=== PATIENT | male | born 1935 | race Caucasian/White ===

== ENCOUNTER → 2016-11-27 | Outpatient (CLI) | payer MEDICARE, OTHER ==
[~2016-11-27] MED LIST: ALDACTONE25 MG PO; ANUSOL HC SUPP1 SUPP PR; ANUSOL SUPP EAC12 EA PR; BUMEX 1MG TABLET1 MG PO; CITRATE OF MAG296 ML PO; COREG6.25 MG PO; ELIQUIS2.5 MG PO; FEOSOL325 MG PO; FERROUS SULFAT325 MG PO; IMDUR ER TAB 3030 MG PO; LASIX 40 MG TAB40 MG PO; LEVEMIR100 UNIT/1 SC; LEVEMIR100 UNIT/1 SQ; LIPITOR TAB 2020 MG PO; MAGNESIUM CITR PO; MEDROL DOSEPAK 24 MG PO; METOPROLOL TART25 MG PO; NASALIDE INH SO25 ML; NITROSTAT 0.40.4 MG SL; NOVOLOG 10100 UNITS/ SC; NOVOLOG 10100 UNITS1 SQ; OMEPRAZOLE20 M1 PO; PRILOSEC20 MG PO; SINGULAIR10 MG PO; SYMBICORT 16010.2 GM INH; TYLENOL 500 MG500 MG PO; VALIUM5 MG PO; VENTOLIN HFA 66.7 GM INH; VITAMIN D 11000 UNIT PO; ZYLOPRIM300 MG PO; ZYRTEC10 MG PO
[2016-11-27 10:51] LABS: HEMOGLOBIN 10.6 gm/dl (14.0-17.5); RED BLOOD COUNT 3.19 M/UL (4.20-5.50); WHITE BLOOD COUNT 4.9 K/UL (4.5-11.0)
== END ==
LOC: LAB 09:36
PROVIDERS: Internal Medicine Nephrology
DX: N18.4 Chronic kidney disease, stage 4 (severe) (principal); N25.81 Secondary hyperparathyroidism of renal origin
CPT/HCPCS: 36415; 80053; 82728; 83540; 83550; 83970; 84100; 85027

== ENCOUNTER → 2017-01-02 | Outpatient (CLI) | payer MEDICARE, OTHER | LOC: HEART 5 11:31 | DX: R06.02 Shortness of breath (principal); F17.210 Nicotine dependence, cigarettes, uncomplicated; R94.2 Abnormal results of pulmonary function studies | CPT/HCPCS: 94060; 94729 ==

== ENCOUNTER 2020-10-19 15:38 | Emergency (ER) | payer MEDICARE, OTHER ==
[~2020-10-19 15:38] MED LIST changes: +CEFUROXIME500 MG PO; +COLACE100 MG PO; +COLCHICINE 0.60.6 MG PO; +COREG 3.125M3.125 MG PO; +DOXYCYCLINE MO100 MG PO; +ELIQUIS 2.5 MG2.5 MG PO; +FISH OIL 1,0001 EACH PO; +FLONASE 0.05% N16 GM; +FLORINEF 0.1 M0.1 MG PO; -LEVEMIR100 UNIT/1 SQ; +LOPRESSOR 25 MG25 MG PO; +MIDODRINE HCL10 MG PO; +MIRALAX17 GM PO; +NEURONTIN 100100 MG PO; +NORCO 5-325 TA1 EACH PO; +NOVOLOG MI100 UNIT/1 SC; +OMNICEF 300 MG300 MG PO; +PROAIR HFA8.5 GM INH; +RANOLAZINE ER500 MG PO; -VITAMIN D 11000 UNIT PO; +VITAMIN D250000 UNIT PO; +ZAROXOLYN/DIULO5 MG PO
[2020-10-19 16:49] LABS: HEMOGLOBIN 9.8 gm/dl (14.0-17.5); RED BLOOD COUNT 2.7 M/UL (4.20-5.50); WHITE BLOOD COUNT 6.1 K/UL (4.5-11.0)
== END 2020-10-19 18:10 | disposition home or self-care (01) ==
LOC: ER1 15:38
PROVIDERS: Physician Assistant
DX: R53.83 Other fatigue (principal); R60.0 Localized edema; R79.9 Abnormal finding of blood chemistry, unspecified; E78.5 Hyperlipidemia, unspecified; E11.9 Type 2 diabetes mellitus without complications; I11.0 Hypertensive heart disease with heart failure; I50.9 Heart failure, unspecified; Z79.899 Other long term (current) drug therapy
CPT/HCPCS: 71045; 80053; 81001; 82550; 82553; 83874; 83880; 84484; 85025; 93005; 99284

== ENCOUNTER → 2020-11-17 | Outpatient (CLI) | payer MEDICARE, OTHER ==
[~2020-11-17] MED LIST changes: +NITROGLYCERIN0.4 MG SL; +SILVADENE CREAM20 GM TOP; +SODIUM CHLORIDE1 G1 PO; +ZOFRAN ODT 4 MG4 MG SL; +ZYVOX600 MG PO
== END ==
LOC: HEART 5 09:00
DX: I50.22 Chronic systolic (congestive) heart failure (principal); I08.3 Combined rheumatic disorders of mitral, aortic and tricuspid valves; I27.20 Pulmonary hypertension, unspecified; R93.1 Abnormal findings on diagnostic imaging of heart and coronary circulation; Z95.5 Presence of coronary angioplasty implant and graft
CPT/HCPCS: 93306

== ENCOUNTER 2021-01-15 11:48 | Inpatient (IN) | payer MEDICARE, OTHER ==
[~2021-01-15] VITALS: Ht 182.9 cm; Wt 86.0 kg
[~2021-01-15 11:48] MED LIST changes: -NITROGLYCERIN0.4 MG SL; -SILVADENE CREAM20 GM TOP; -SODIUM CHLORIDE1 G1 PO; -ZOFRAN ODT 4 MG4 MG SL; -ZYVOX600 MG PO
[2021-01-15 13:50] LABS: HEMOGLOBIN 9.9 gm/dl (14.0-17.5); RED BLOOD COUNT 2.79 M/UL (4.20-5.50); WHITE BLOOD COUNT 8.8 K/UL (4.5-11.0)
[2021-01-15 14:21] LABS: BUN/CREATININE RATIO 22 (0-10)
[2021-01-15] MEDS ORDERED: SILVADENE CREAM20 GM TOP (19:49)
[2021-01-15] MEDS ORDERED: NITROGLYCERIN0.4 MG SL (19:50)
[2021-01-16 02:29] LABS: ACINETOBACTER BAUMANNII Not Detected (Negative); CANDIDA ALBICANS Not Detected (Negative); CANDIDA KRUSEI Not Detected (Negative); CANDIDA TROPICALIS Not Detected (Negative); ESCHERICHIA COLI Not Detected (Negative); HAEMOPHILUS INFLUENZAE Not Detected (Negative); KLEBSIELLA OXYTOCA Not Detected (Negative); KLEBSIELLA PNEUMONIAE Not Detected (Negative); KPC-CARBAPENEM-RESISTANCE GENE Not Detected (Negative); PROTEUS Not Detected (Negative); PSEUDOMONAS AERUGINOSA Not Detected (Negative); SERRATIA MARCESANS Not Detected (Negative); STAPHYLOCOCCUS Not Detected (Negative); STAPHYLOCOCCUS AUREUS Not Detected (Negative); STREP AGALACTIAE (GROUP B) Not Detected (Negative); STREP PYOGENES (GROUP A) Not Detected (Negative); STREPTOCOCCUS Not Detected (Negative); mecA (METHICILLIN RESIST GENE Not Detected (Negative); vanA/B (VANCOMYCIN RESIST GENE Not Detected (Negative)
[2021-01-16 03:44] LABS: ENTEROCOCCUS DETECTED (Negative)
[2021-01-16 04:55] LABS: HEMOGLOBIN 9.2 gm/dl (14.0-17.5); RED BLOOD COUNT 2.6 M/UL (4.20-5.50); WHITE BLOOD COUNT 7.2 K/UL (4.5-11.0)
[2021-01-17 04:39] LABS: HEMOGLOBIN 8.9 gm/dl (14.0-17.5); RED BLOOD COUNT 2.5 M/UL (4.20-5.50); WHITE BLOOD COUNT 5.7 K/UL (4.5-11.0)
[2021-01-18 05:51] LABS: HEMOGLOBIN 9.3 gm/dl (14.0-17.5); RED BLOOD COUNT 2.6 M/UL (4.20-5.50); WHITE BLOOD COUNT 5.7 K/UL (4.5-11.0)
--- NOTE | 2021-01-19 21:00 | NUR ---
Spoke with the patient's about the new dressing change orders that Dr. Floyd had put in for patient. I explained to her that it was a little different than the dressing changes that the patient's regular human resources hr representative ordered and it was iodine wet to dry instead of normal saline wet to dry. Patient's stated that she wanted to continue with the same dressing change she had been doing that was ordered by his human resources hr representative. I explained that this dressing change might be better for the patient and help him heal faster because it is iodine and it is to be done twice a day. Patient's still declined new dressing change orders. Patient's redid dressing tonight with normal saline wet to dry 4x4s and bulky gauze wrap.
[2021-01-20 04:35] LABS: HEMOGLOBIN 9.4 gm/dl (14.0-17.5); RED BLOOD COUNT 2.67 M/UL (4.20-5.50); WHITE BLOOD COUNT 6.3 K/UL (4.5-11.0)
[2021-01-21] MEDS ORDERED: ZYVOX600 MG PO (11:03)
[2021-01-21] MEDS ORDERED: SODIUM CHLORIDE1 G1 PO (11:03)
[2021-01-21] MEDS ORDERED: ZOFRAN ODT 4 MG4 MG SL (11:06)
== END 2021-01-21 13:01 | disposition home health service (06) | DRG 291 ==
LOC: ER1 11:48 → M/S 18:15 → CDU 18:36 → M/S 20:05
PROVIDERS: Internal Medicine; Internal Medicine Nephrology; Physician Assistant; ADMIT Internal Medicine
DX: I13.0 Hypertensive heart and chronic kidney disease with heart failure and stage 1 through stage 4 chronic kidney disease, or unspecified chronic kidney disease (principal); G93.41 Metabolic encephalopathy; J96.21 Acute and chronic respiratory failure with hypoxia; I50.23 Acute on chronic systolic (congestive) heart failure; E11.52 Type 2 diabetes mellitus with diabetic peripheral angiopathy with gangrene; I96 Gangrene, not elsewhere classified; N18.4 Chronic kidney disease, stage 4 (severe); N17.9 Acute kidney failure, unspecified; I48.21 Permanent atrial fibrillation; E87.1 Hypo-osmolality and hyponatremia; I70.92 Chronic total occlusion of artery of the extremities; R78.81 Bacteremia; L97.429 Non-pressure chronic ulcer of left heel and midfoot with unspecified severity; L89.620 Pressure ulcer of left heel, unstageable; L89.159 Pressure ulcer of sacral region, unspecified stage; M10.9 Gout, unspecified; E11.22 Type 2 diabetes mellitus with diabetic chronic kidney disease; D53.9 Nutritional anemia, unspecified; I25.5 Ischemic cardiomyopathy; Z20.822 Contact with and (suspected) exposure to COVID-19; I25.10 Atherosclerotic heart disease of native coronary artery without angina pectoris; L89.621 Pressure ulcer of left heel, stage 1; E78.5 Hyperlipidemia, unspecified; M81.0 Age-related osteoporosis without current pathological fracture; I27.20 Pulmonary hypertension, unspecified; B95.2 Enterococcus as the cause of diseases classified elsewhere; Z79.4 Long term (current) use of insulin; Z79.01 Long term (current) use of anticoagulants; Z95.1 Presence of aortocoronary bypass graft; Z85.828 Personal history of other malignant neoplasm of skin; Z88.1 Allergy status to other antibiotic agents
CPT/HCPCS: 0240U; 36415; 36600; 70450; 71045; 73630; 80048; 80053; 80202; 81001; 82140; 82550; 82553; 82728; 82803; 82962; 83540; 83550; 83874; 83880; 84295; 84439; 84443; 84484; 84550; 85025; 85027; 87040; 87077; 87150; 87186; 92526; 92610; 93005; 93926; 96374; 97110-GP-CQ; 97162; 97530; 97530-GP-CQ; 99285; J1940; J2020; J2550; J3370; J7070

== ENCOUNTER 2021-01-31 19:33 | Emergency (ER) | payer MEDICARE, OTHER ==
[~2021-01-31 19:33] MED LIST changes: +NITROGLYCERIN0.4 MG SL; +SILVADENE CREAM20 GM TOP; +SODIUM CHLORIDE1 G1 PO; +ZOFRAN ODT 4 MG4 MG SL; +ZYVOX600 MG PO
[2021-01-31 20:09] LABS: HEMOGLOBIN 8.2 gm/dl (14.0-17.5); RED BLOOD COUNT 2.31 M/UL (4.20-5.50)
== END 2021-02-01 02:17 | disposition short-term general hospital (02) ==
LOC: ER1 19:33
PROVIDERS: Internal Medicine
DX: I13.0 Hypertensive heart and chronic kidney disease with heart failure and stage 1 through stage 4 chronic kidney disease, or unspecified chronic kidney disease (principal); E11.22 Type 2 diabetes mellitus with diabetic chronic kidney disease; N18.9 Chronic kidney disease, unspecified; I50.9 Heart failure, unspecified; I48.91 Unspecified atrial fibrillation; Z95.1 Presence of aortocoronary bypass graft; Z20.822 Contact with and (suspected) exposure to COVID-19
CPT/HCPCS: 51702; 70450; 71045; 80048; 80053; 81001; 82140; 82272; 82550; 82553; 83605; 84484; 85025; 85610; 85730; 86850; 86900; 86901; 87040; 93005; 96374; 96375; 99285; C9113; J0610; J0696; J1940; J2354; U0002